=== PATIENT | female | born 1950 | race Caucasian/White ===

== ENCOUNTER 2019-02-06 23:20 | Inpatient (IN) | payer MEDICARE, MEDICAID ==
[~2019-02-06] VITALS: Ht 165.1 cm; Wt 104.3 kg
[~2019-02-06 23:20] MED LIST: LISI-604 PO; METF-415 PO; RANI150T7 PO; SIMV10TA6 PO; insulin 70/30 SUBCUT
[2019-02-07] MEDS ORDERED: ENOXAPARIN 100MG/ML SYR SUBCUT ONE (00:15)
[2019-02-07 00:37] LABS: BASOPHILS % 0.8 % (0.0-2.0); EOSINOPHILS % 0.9 % (0.0-5.0); HEMATOCRIT. 30.1 % (36.0-48.0); HEMOGLOBIN. 9.6 g/dL (12.0-16.0); LYMPHOCYTES % 11.4 % (20.0-50.0); MEAN CORPUSCULAR HEMOGLOBIN 27.4 pg (28.0-32.0); MEAN CORPUSCULAR VOLUME 85.9 fL (81.0-99.0); MEAN PLATELET VOLUME 7.2 fl (7.4-10.4); MONOCYTES % 6.9 % (2.0-8.0); PLATELET 212 x1000/uL (130-400); RED BLOOD CELL COUNT 3.51 mill/uL (4.2-5.4); RED CELL DISTRIBUTION WIDTH 24.5 % (11.6-14.6)
[2019-02-07 00:44] LABS: CHLORIDE 99 mEq/L (98-107); PROTHROMBIN TIME 10.7 sec (9.6-11.0)
[2019-02-07 01:15] LABS: PLATELET ESTIMATE NORMAL
[2019-02-07] MEDS ORDERED: LORAZEPAM 2MG/ML CPJ IV ONE (04:00)
[2019-02-07] MEDS ORDERED: OLANZAPINE 10 MG/VIAL IM ONE (05:30)
[2019-02-07 08:00] VITALS: BP 136/67
[2019-02-07] MEDS ORDERED: HYDROCODONE/ACETAMINOPHEN 5/325MG TABLET PO PRN (09:00)
[2019-02-07] MEDS ORDERED: ONDANSETRON HCL 4MG/2ML INJ IV PRN (09:00)
[2019-02-07] MEDS ORDERED: DOCUSATE SODIUM 100MG CAPSULE PO PRN (09:00)
[2019-02-07] MEDS ORDERED: GUAIFENESIN 200MG/10ML SUGAR FREE UDC PO PRN (09:00)
[2019-02-07] MEDS ORDERED: IPRATROPIUM/ALBUTEROL 0.5-3(2.5)MG/3ML NEB INH PRN (09:00)
[2019-02-07] MEDS ORDERED: MAGNESIUM/ALUMINUM HYDROXIDE/SIMETHICONE 30ML UDC PO PRN (09:00)
[2019-02-07] MEDS ORDERED: ACETAMINOPHEN 325MG TABLET PO PRN (09:00)
[2019-02-07 09:18] LABS: PHOSPHORUS 2.6 mg/dL (2.5-4.9)
[2019-02-07] MEDS: ENOXAPARIN 120MG/0.8ML SYR SUBCUT SCH ×2 (11:04→22:43)
[2019-02-07] MEDS ORDERED: DEXTROSE 50% WATER 50ML SYRINGE IV PRN (11:30)
[2019-02-07 12:00] VITALS: BP 138/79
[2019-02-07] MEDS: INSULIN LISPRO 100 UNITS/ML SUBCUT SCH ×3 (13:10→22:45)
[2019-02-07] MEDS: BLOOD SUGAR DIAGNOSTIC STRIP TEST SCH ×3 (13:23→22:43)
[2019-02-07 16:00] VITALS: BP 127/80
[2019-02-07 17:21] VITALS: BP 138/79
[2019-02-07] MEDS ORDERED: HEPA100D37 IV (18:57)
[2019-02-07] MEDS ORDERED: LEVO500T2 MT (18:57)
[2019-02-07] MEDS ORDERED: LOSA50TA20 MT (18:57)
[2019-02-07] MEDS ORDERED: ALBU4TAB6 MT (18:57)
[2019-02-07 20:00] VITALS: BP 127/62
[2019-02-08] VITALS (15 sets, daily range): BP systolic 72–154; BP diastolic 50–80
[2019-02-08 00:13] LABS: CREATINE KINASE MB FRACTION 1.9 ng/mL (0.5-3.6)
[2019-02-08 06:30] LABS: CHLORIDE 100 mEq/L (98-107)
[2019-02-08 06:37] LABS: EOSINOPHILS % 0.6 % (0.0-5.0); HEMATOCRIT. 30.7 % (36.0-48.0); HEMOGLOBIN. 9.6 g/dL (12.0-16.0); LYMPHOCYTES % 18.8 % (20.0-50.0); MEAN CORPUSCULAR HEMOGLOBIN 26.9 pg (28.0-32.0); MEAN CORPUSCULAR VOLUME 86.1 fL (81.0-99.0); MEAN PLATELET VOLUME 7.7 fl (7.4-10.4); MONOCYTES % 7.1 % (2.0-8.0); NEUTROPHILS % 72.5 % (40.0-76.0); PLATELET 292 x1000/uL (130-400); RED BLOOD CELL COUNT 3.56 mill/uL (4.2-5.4); RED CELL DISTRIBUTION WIDTH 24.7 % (11.6-14.6)
[2019-02-08 06:39] LABS: LDL CHOLESTEROL 64 mg/dL (5-100)
[2019-02-08 06:40] LABS: HDL CHOLESTEROL 63 mg/dL (40-59)
[2019-02-08] MEDS: BLOOD SUGAR DIAGNOSTIC STRIP TEST SCH ×2 (07:21→12:40)
[2019-02-08] MEDS: INSULIN LISPRO 100 UNITS/ML SUBCUT SCH ×2 (07:22→13:10)
[2019-02-08] MEDS: ENOXAPARIN 120MG/0.8ML SYR SUBCUT SCH (11:15)
[2019-02-08] MEDS: LOSARTAN POTASSIUM 50 MG TABLET PO SCH (12:00)
[2019-02-08] MEDS: LISINOPRIL 20MG TABLET PO SCH (12:00)
[2019-02-08 17:13] LABS: BG BASE EXCESS -0.2 mmol/L (-2.0-2.0); BG CARBOXYHEMOGLOBIN 0.4 % (0.5-1.5); BG DEOXYHEMOGLOBIN 0.6 % (0.0-5.0); BG FRACTION INSPIRED OXYGEN 100; BG HCO3 ACT 28.5 mmol/L (22.0-26.0); BG METHEMOGLOBIN 0.2 % (0.0-1.5); BG OXYGEN SATURATION 99.4 % (92.0-98.5); BG OXYHEMOGLOBIN 98.8 % (94.0-97.0); BG PH 7.228 (7.350-7.450); BG PO2 219.8 mmHg (75.0-100.0); BG SAMPLE SITE LEFT RADIAL; BG TOTAL HEMOGLOBIN 10.8 g/dL (12.0-18.0); BG VENT MODE MASK - NRB
[2019-02-08] MEDS ORDERED: SUCCINYLCHOLINE CHLORIDE 200MG/10ML IV ONE (17:15)
[2019-02-08] MEDS ORDERED: ETOMIDATE 2MG/ML 10ML VIAL IV ONE (17:15)
[2019-02-08] MEDS ORDERED: SODIUM CHLORIDE 0.9% 10ML VIAL ONE (17:15)
[2019-02-08] MEDS ORDERED: IPRATROPIUM/ALBUTEROL 0.5-3(2.5)MG/3ML NEB HHN PRN (18:00)
[2019-02-08 18:49] LABS: BG BASE EXCESS 0.6 mmol/L (-2.0-2.0); BG DEOXYHEMOGLOBIN 3.6 % (0.0-5.0); BG FRACTION INSPIRED OXYGEN 60; BG HCO3 ACT 26.7 mmol/L (22.0-26.0); BG METHEMOGLOBIN 0.1 % (0.0-1.5); BG OXYGEN SATURATION 96.4 % (92.0-98.5); BG OXYHEMOGLOBIN 95.3 % (94.0-97.0); BG PCO2 49.5 mmHg (35.0-45.0); BG PH 7.349 (7.350-7.450); BG PO2 90.9 mmHg (75.0-100.0); BG SAMPLE SITE RIGHT RADIAL; BG TIDAL VOLUME(mL) 500 mL; BG TOTAL HEMOGLOBIN 10.5 g/dL (12.0-18.0); BG VENT MODE VENT - A/C; BG VENT RATE 18 set
[2019-02-08] MEDS: PROPOFOL 10MG/ML 100ML 100 ML IV PRN (19:00)
[2019-02-08 19:01] LABS: EOSINOPHILS % 0.3 % (0.0-5.0); HEMATOCRIT. 30.4 % (36.0-48.0); HEMOGLOBIN. 9.4 g/dL (12.0-16.0); LYMPHOCYTES % 7.5 % (20.0-50.0); MEAN CORPUSCULAR VOLUME 87.5 fL (81.0-99.0); MEAN PLATELET VOLUME 7.5 fl (7.4-10.4); MONOCYTES % 3.4 % (2.0-8.0); NEUTROPHILS % 87.8 % (40.0-76.0); PLATELET 298 x1000/uL (130-400); RED BLOOD CELL COUNT 3.48 mill/uL (4.2-5.4); RED CELL DISTRIBUTION WIDTH 24.3 % (11.6-14.6)
[2019-02-08] MEDS: BUDESONIDE 0.5MG/2ML NEB HHN SCH (20:16)
[2019-02-08] MEDS: IPRATROPIUM/ALBUTEROL 0.5-3(2.5)MG/3ML NEB HHN SCH ×2 (20:16→23:58)
[2019-02-08] MEDS: PIPERACILLIN/TAZ 2.25G PREMIX 50 ML IV SCH (20:52)
[2019-02-08] MEDS: ATORVASTATIN CALCIUM 10MG TABLET PO SCH (20:52)
[2019-02-08] MEDS: FAMOTIDINE 20MG/2ML VIAL IV SCH (20:52)
[2019-02-08] MEDS ORDERED: ENOXAPARIN 120MG/0.8ML SYR SUBCUT SCH (21:00)
[2019-02-08] MEDS ORDERED: VANCOMYCIN 1500MG in DEXTROSE 5% WATER 250ML IV NR (21:00)
[2019-02-08 22:55] LABS: CLARITY URINE TURBID (CLEAR); KETONES URINE 1+ (NEGATIVE); LEUKOCYTE ESTERASE URINE 2+ (NEGATIVE); NITRITE URINE NEGATIVE (NEGATIVE); OCCULT BLOOD URINE NEGATIVE (NEGATIVE); PROTEIN URINE 2+ (NEGATIVE); SPECIFIC GRAVITY URINE 1.026 (1.005-1.030); UROBILINOGEN URINE 0.2 E.U./dL (0.2-1.0)
[2019-02-08 22:57] LABS: COLOR URINE DARK YELLOW (YELLOW)
[2019-02-08 23:03] LABS: *AMPHETAMINES SCREEN URINE NEGATIVE (NEGATIVE); *BARBITURATES SCREEN URINE NEGATIVE (NEGATIVE)
[2019-02-08 23:04] LABS: *BENZODIAZEPINES SCREEN URINE NEGATIVE (NEGATIVE); *COCAINE SCREEN URINE NEGATIVE (NEGATIVE); CANNABINOID URINE SCREEN NEGATIVE (NEGATIVE); METHADONE URINE SCREEN NEGATIVE (NEGATIVE); OPIATES URINE SCREEN NEGATIVE (NEGATIVE); PHENCYCLIDINE URINE SCREEN NEGATIVE (NEGATIVE)
[2019-02-09] VITALS (38 sets, daily range): BP systolic 87–161; BP diastolic 44–91
[2019-02-09] MEDS: BLOOD SUGAR DIAGNOSTIC STRIP TEST SCH ×5 (00:12→23:49)
[2019-02-09] MEDS: PIPERACILLIN/TAZ 2.25G PREMIX 50 ML IV SCH ×4 (02:24→19:41)
[2019-02-09] MEDS: PROPOFOL 10MG/ML 100ML 100 ML IV PRN ×2 (03:38→11:15)
[2019-02-09] MEDS: IPRATROPIUM/ALBUTEROL 0.5-3(2.5)MG/3ML NEB HHN SCH ×6 (04:07→23:56)
[2019-02-09 05:32] LABS: HEMATOCRIT. 30.4 % (36.0-48.0); HEMOGLOBIN. 9.6 g/dL (12.0-16.0); MEAN CORPUSCULAR HEMOGLOBIN 27.5 pg (28.0-32.0); MEAN CORPUSCULAR VOLUME 87.6 fL (81.0-99.0); MEAN PLATELET VOLUME 7.7 fl (7.4-10.4); PLATELET 277 x1000/uL (130-400); RED BLOOD CELL COUNT 3.48 mill/uL (4.2-5.4); RED CELL DISTRIBUTION WIDTH 24.4 % (11.6-14.6)
[2019-02-09] MEDS: INSULIN LISPRO 100 UNITS/ML SUBCUT SCH ×5 (05:53→23:49)
[2019-02-09 06:43] LABS: HEPATITIS B SURFACE ANTIGEN NEGATIVE
[2019-02-09] MEDS ORDERED: [UNRECOGNIZED DRUG - REMARK] XX SCH (07:15)
[2019-02-09] MEDS: FAMOTIDINE 20MG/2ML VIAL IV SCH (08:06)
[2019-02-09] MEDS: LOSARTAN POTASSIUM 50 MG TABLET PO SCH (08:06)
[2019-02-09] MEDS: LISINOPRIL 20MG TABLET PO SCH (08:06)
[2019-02-09] MEDS: BUDESONIDE 0.5MG/2ML NEB HHN SCH ×2 (08:28→20:13)
[2019-02-09 09:22] LABS: PLATELET ESTIMATE NORMAL
[2019-02-09] MEDS ORDERED: HEPARIN BOLUS PRN aPTT <36 IV (09:30)
[2019-02-09] MEDS ORDERED: HEPARIN BOLUS PRN aPTT 37-44 IV (09:30)
[2019-02-09] MEDS ORDERED: HEPARIN SODIUM 1,000 UNIT/1ML VIAL IV ONE (09:45)
[2019-02-09] MEDS: HEPARIN 25,000 UNITS PREMIX 500 ML IV SCH (11:32)
[2019-02-09 12:24] LABS: BG BASE EXCESS 1.4 mmol/L (-2.0-2.0); BG CARBOXYHEMOGLOBIN 0.5 % (0.5-1.5); BG FRACTION INSPIRED OXYGEN 50; BG METHEMOGLOBIN 0.1 % (0.0-1.5); BG OXYGEN SATURATION 90.9 % (92.0-98.5); BG OXYHEMOGLOBIN 90.4 % (94.0-97.0); BG PCO2 41.2 mmHg (35.0-45.0); BG PH 7.418 (7.350-7.450); BG SAMPLE SITE RIGHT RADIAL; BG TIDAL VOLUME(mL) 500 mL; BG TOTAL HEMOGLOBIN 10.7 g/dL (12.0-18.0); BG VENT MODE VENT - A/C; BG VENT RATE 18 set
[2019-02-09] MEDS: FENTANYL CITRATE/PF 500 MCG in SODIUM CHLORIDE 0.9% 40 ML IV PRN ×2 (13:13→20:29)
[2019-02-09] MEDS ORDERED: WARFARIN SODIUM 5MG TABLET PO NR (20:00)
[2019-02-09] MEDS: MIDAZOLAM HCL 100 MG in DEXT 5% WATER 80 ML IV PRN (20:31)
[2019-02-09] MEDS: ATORVASTATIN CALCIUM 10MG TABLET PO SCH (20:46)
[2019-02-09] MEDS ORDERED: VANCOMYCIN 1 G PREMIX 200 ML IV SCH (21:00)
[2019-02-10] VITALS (72 sets, daily range): BP systolic 81–137; BP diastolic 40–80
[2019-02-10] MEDS: PIPERACILLIN/TAZ 2.25G PREMIX 50 ML IV SCH ×4 (02:51→22:56)
[2019-02-10] MEDS: FENTANYL CITRATE/PF 500 MCG in SODIUM CHLORIDE 0.9% 40 ML IV PRN ×2 (02:58→17:14)
[2019-02-10] MEDS ORDERED: VANCOMYCIN 1250MG in DEXTROSE 5% WATER 250ML IV SCH (04:00)
[2019-02-10] MEDS: IPRATROPIUM/ALBUTEROL 0.5-3(2.5)MG/3ML NEB HHN SCH ×5 (04:09→22:01)
[2019-02-10 04:44] LABS: BASOPHILS % 0.8 % (0.0-2.0); EOSINOPHILS % 0.5 % (0.0-5.0); HEMATOCRIT. 26.3 % (36.0-48.0); HEMOGLOBIN. 8.3 g/dL (12.0-16.0); LYMPHOCYTES % 10.8 % (20.0-50.0); MEAN CORPUSCULAR HEMOGLOBIN 27.5 pg (28.0-32.0); MEAN CORPUSCULAR VOLUME 87.1 fL (81.0-99.0); MEAN PLATELET VOLUME 7.7 fl (7.4-10.4); MONOCYTES % 5.4 % (2.0-8.0); NEUTROPHILS % 82.5 % (40.0-76.0); PLATELET 242 x1000/uL (130-400); RED BLOOD CELL COUNT 3.02 mill/uL (4.2-5.4); RED CELL DISTRIBUTION WIDTH 24.7 % (11.6-14.6)
[2019-02-10 05:12] LABS: INR 1.2; PROTHROMBIN TIME 12.8 sec (9.6-11.0)
[2019-02-10] MEDS: BLOOD SUGAR DIAGNOSTIC STRIP TEST SCH ×3 (05:14→17:25)
[2019-02-10] MEDS: INSULIN LISPRO 100 UNITS/ML SUBCUT SCH ×3 (05:15→17:27)
[2019-02-10] MEDS: HEPARIN 25,000 UNITS PREMIX 500 ML IV SCH (06:19)
[2019-02-10] MEDS ORDERED: POTASSIUM CHLORIDE 20MEQ/PACKET PO NR (07:45)
[2019-02-10] MEDS: BUDESONIDE 0.5MG/2ML NEB HHN SCH ×2 (08:10→22:01)
[2019-02-10 08:15] LABS: *CREATININE RANDOM URINE 324.5 mg/dL (Not Estab.); MICROALBUMIN RANDOM URINE 1384.8 ug/mL (Not Estab.)
[2019-02-10] MEDS: LOSARTAN POTASSIUM 50 MG TABLET PO SCH (08:20)
[2019-02-10] MEDS: FAMOTIDINE 20MG/2ML VIAL IV SCH (08:20)
[2019-02-10] MEDS: LISINOPRIL 20MG TABLET PO SCH (08:28)
[2019-02-10] MEDS: ENOXAPARIN 120MG/0.8ML SYR SUBCUT SCH (17:11)
[2019-02-10] MEDS: MIDAZOLAM HCL 100 MG in DEXT 5% WATER 80 ML IV PRN (17:15)
[2019-02-10] MEDS ORDERED: WARFARIN SODIUM 5MG TABLET PO NR (18:00)
[2019-02-10] MEDS: ATORVASTATIN CALCIUM 10MG TABLET PO SCH (20:03)
[2019-02-11] VITALS (77 sets, daily range): BP systolic 74–129; BP diastolic 29–79
[2019-02-11] MEDS: IPRATROPIUM/ALBUTEROL 0.5-3(2.5)MG/3ML NEB HHN SCH ×6 (00:58→19:57)
[2019-02-11 05:05] LABS: BASOPHILS % 0.9 % (0.0-2.0); EOSINOPHILS % 1.8 % (0.0-5.0); HEMATOCRIT. 26.2 % (36.0-48.0); HEMOGLOBIN. 8.4 g/dL (12.0-16.0); MEAN CORPUSCULAR HEMOGLOBIN 27.9 pg (28.0-32.0); MEAN CORPUSCULAR VOLUME 86.8 fL (81.0-99.0); MEAN PLATELET VOLUME 7.8 fl (7.4-10.4); MONOCYTES % 5.6 % (2.0-8.0); NEUTROPHILS % 78.7 % (40.0-76.0); PLATELET 249 x1000/uL (130-400); RED BLOOD CELL COUNT 3.02 mill/uL (4.2-5.4); RED CELL DISTRIBUTION WIDTH 24.5 % (11.6-14.6)
[2019-02-11 05:10] LABS: INR 1.4; PROTHROMBIN TIME 13.7 sec (9.6-11.0)
[2019-02-11] MEDS: INSULIN LISPRO 100 UNITS/ML SUBCUT SCH ×5 (06:00→23:16)
[2019-02-11] MEDS: BLOOD SUGAR DIAGNOSTIC STRIP TEST SCH ×5 (06:00→23:16)
[2019-02-11] MEDS: PIPERACILLIN/TAZ 2.25G PREMIX 50 ML IV SCH ×2 (06:09→15:14)
[2019-02-11] MEDS: FENTANYL CITRATE/PF 500 MCG in SODIUM CHLORIDE 0.9% 40 ML IV PRN ×2 (06:10→18:43)
[2019-02-11] MEDS ORDERED: HEPARIN SODIUM 1,000 UNIT/1ML VIAL IV NR (08:45)
[2019-02-11] MEDS: BUDESONIDE 0.5MG/2ML NEB HHN SCH ×2 (08:49→19:57)
[2019-02-11] MEDS: LISINOPRIL 20MG TABLET PO SCH (09:00)
[2019-02-11] MEDS: LOSARTAN POTASSIUM 50 MG TABLET PO SCH (09:00)
[2019-02-11] MEDS ORDERED: DOCUSATE SODIUM 250MG CAPSULE PO SCH (09:45)
[2019-02-11] MEDS ORDERED: LACTULOSE 20G/30ML UDC PO NR (09:45)
[2019-02-11] MEDS ORDERED: VANCOMYCIN 1 G PREMIX 200 ML IV NR (10:30)
[2019-02-11] MEDS: FAMOTIDINE 20MG/2ML VIAL IV SCH (11:01)
[2019-02-11 13:32] LABS: BG BASE EXCESS 0.4 mmol/L (-2.0-2.0); BG CARBOXYHEMOGLOBIN 0.4 % (0.5-1.5); BG DEOXYHEMOGLOBIN 2.7 % (0.0-5.0); BG FRACTION INSPIRED OXYGEN 50; BG HCO3 ACT 25.9 mmol/L (22.0-26.0); BG METHEMOGLOBIN 0.2 % (0.0-1.5); BG OXYGEN SATURATION 97.3 % (92.0-98.5); BG OXYHEMOGLOBIN 96.7 % (94.0-97.0); BG PCO2 45.7 mmHg (35.0-45.0); BG PH 7.371 (7.350-7.450); BG PO2 105.4 mmHg (75.0-100.0); BG SAMPLE SITE RIGHT BRACHIAL; BG TIDAL VOLUME(mL) 500 mL; BG VENT MODE VENT - A/C; BG VENT RATE 14 set
[2019-02-11] MEDS: DOCUSATE SODIUM SUGAR FREE 100MG/10ML UDC NG SCH (16:00)
[2019-02-11] MEDS: ENOXAPARIN 120MG/0.8ML SYR SUBCUT SCH (16:18)
[2019-02-11] MEDS ORDERED: AZITHROMYCIN 500 MG in DEXT 5% WATER 250 ML IV SCH (18:00)
[2019-02-11] MEDS: OSELTAMIVIR 75MG CAPSULE NG SCH (18:41)
[2019-02-11] MEDS: ATORVASTATIN CALCIUM 10MG TABLET PO SCH (20:42)
[2019-02-11] MEDS: NOREPINEPHRINE 4 MG in DEXT 5% WATER 246 ML IV PRN (20:42)
[2019-02-11] MEDS ORDERED: LACTULOSE 20G/30ML UDC PO PRN (21:00)
[2019-02-12] VITALS (95 sets, daily range): BP systolic 87–136; BP diastolic 31–80
[2019-02-12] MEDS: IPRATROPIUM/ALBUTEROL 0.5-3(2.5)MG/3ML NEB HHN SCH ×6 (00:21→15:33)
[2019-02-12 05:07] LABS: BASOPHILS % 0.8 % (0.0-2.0); EOSINOPHILS % 2.5 % (0.0-5.0); HEMATOCRIT. 29.5 % (36.0-48.0); HEMOGLOBIN. 9.5 g/dL (12.0-16.0); LYMPHOCYTES % 13.4 % (20.0-50.0); MEAN CORPUSCULAR HEMOGLOBIN 27.8 pg (28.0-32.0); MEAN CORPUSCULAR VOLUME 86.7 fL (81.0-99.0); MEAN PLATELET VOLUME 7.9 fl (7.4-10.4); MONOCYTES % 4.6 % (2.0-8.0); NEUTROPHILS % 78.7 % (40.0-76.0); PLATELET 306 x1000/uL (130-400); RED BLOOD CELL COUNT 3.41 mill/uL (4.2-5.4); RED CELL DISTRIBUTION WIDTH 23.9 % (11.6-14.6)
[2019-02-12 05:18] LABS: INR 1.4; PROTHROMBIN TIME 13.8 sec (9.6-11.0)
[2019-02-12] MEDS: INSULIN LISPRO 100 UNITS/ML SUBCUT SCH ×4 (05:45→23:27)
[2019-02-12] MEDS: BLOOD SUGAR DIAGNOSTIC STRIP TEST SCH ×4 (05:45→23:27)
[2019-02-12] MEDS: OSELTAMIVIR 75MG CAPSULE NG SCH (05:45)
[2019-02-12] MEDS: DOCUSATE SODIUM SUGAR FREE 100MG/10ML UDC NG SCH (08:41)
[2019-02-12] MEDS: LOSARTAN POTASSIUM 50 MG TABLET PO SCH (08:41)
[2019-02-12] MEDS: LISINOPRIL 20MG TABLET PO SCH (08:41)
[2019-02-12] MEDS: FAMOTIDINE 20MG/2ML VIAL IV SCH (09:06)
[2019-02-12] MEDS ORDERED: SODIUM CHLORIDE 0.9% 500 ML IV ONE ×2 (09:30→10:45)
[2019-02-12] MEDS: METHYLPREDNISOLONE SOD SUCC 125 MG/2 ML VIAL IV SCH ×3 (11:24→21:01)
[2019-02-12] MEDS: LEVOFLOXACIN 750MG PREMIX 150 ML IV SCH (11:27)
[2019-02-12] MEDS: FENTANYL CITRATE/PF 500 MCG in SODIUM CHLORIDE 0.9% 40 ML IV PRN ×2 (11:44→21:02)
[2019-02-12] MEDS: NOREPINEPHRINE 4 MG in DEXT 5% WATER 246 ML IV PRN (16:47)
[2019-02-12] MEDS: ENOXAPARIN 120MG/0.8ML SYR SUBCUT SCH (16:47)
[2019-02-12] MEDS: MIDAZOLAM HCL 100 MG in DEXT 5% WATER 80 ML IV PRN (17:30)
[2019-02-12] MEDS: ATORVASTATIN CALCIUM 10MG TABLET PO SCH (21:01)
[2019-02-13] VITALS (95 sets, daily range): BP systolic 92–157; BP diastolic 47–82
[2019-02-13] MEDS: IPRATROPIUM/ALBUTEROL 0.5-3(2.5)MG/3ML NEB HHN SCH ×6 (00:55→20:29)
[2019-02-13] MEDS: METHYLPREDNISOLONE SOD SUCC 125 MG/2 ML VIAL IV SCH (05:26)
[2019-02-13] MEDS: BLOOD SUGAR DIAGNOSTIC STRIP TEST SCH ×3 (05:27→17:12)
[2019-02-13] MEDS: FENTANYL CITRATE/PF 500 MCG in SODIUM CHLORIDE 0.9% 40 ML IV PRN (05:27)
[2019-02-13] MEDS: INSULIN LISPRO 100 UNITS/ML SUBCUT SCH ×3 (05:27→17:15)
[2019-02-13 05:36] LABS: INR 1.3; PROTHROMBIN TIME 13.1 sec (9.6-11.0)
[2019-02-13 05:37] LABS: HEMATOCRIT. 29.6 % (36.0-48.0); HEMOGLOBIN. 9.3 g/dL (12.0-16.0); MEAN CORPUSCULAR HEMOGLOBIN 27.4 pg (28.0-32.0); MEAN PLATELET VOLUME 8.1 fl (7.4-10.4); PLATELET 250 x1000/uL (130-400); RED CELL DISTRIBUTION WIDTH 23.9 % (11.6-14.6)
[2019-02-13] MEDS: FAMOTIDINE 20MG/2ML VIAL IV SCH (09:07)
[2019-02-13] MEDS: LOSARTAN POTASSIUM 50 MG TABLET PO SCH (09:07)
[2019-02-13] MEDS: DOCUSATE SODIUM SUGAR FREE 100MG/10ML UDC NG SCH (09:08)
[2019-02-13] MEDS: LISINOPRIL 20MG TABLET PO SCH (09:08)
[2019-02-13 11:10] LABS: PLATELET ESTIMATE NORMAL
[2019-02-13] MEDS: METHYLPREDNISOLONE SOD SUCC 40 MG/ML VIAL IV SCH ×2 (12:09→20:08)
[2019-02-13 13:20] LABS: BG BASE EXCESS -1.8 mmol/L (-2.0-2.0); BG CARBOXYHEMOGLOBIN 0.3 % (0.5-1.5); BG DEOXYHEMOGLOBIN 11.1 % (0.0-5.0); BG FRACTION INSPIRED OXYGEN 40; BG HCO3 ACT 24.8 mmol/L (22.0-26.0); BG METHEMOGLOBIN 0.1 % (0.0-1.5); BG OXYGEN SATURATION 88.9 % (92.0-98.5); BG OXYHEMOGLOBIN 88.5 % (94.0-97.0); BG PCO2 50.9 mmHg (35.0-45.0); BG PH 7.305 (7.350-7.450); BG PO2 60.3 mmHg (75.0-100.0); BG PRESSURE SUPPORT 8; BG SAMPLE SITE LEFT RADIAL; BG TOTAL HEMOGLOBIN 10.1 g/dL (12.0-18.0); BG VENT MODE VENT - CPAP
[2019-02-13] MEDS: ENOXAPARIN 120MG/0.8ML SYR SUBCUT SCH (17:15)
[2019-02-13] MEDS: ATORVASTATIN CALCIUM 10MG TABLET PO SCH (20:08)
[2019-02-13] MEDS: DIPHENHYDRAMINE 50MG/ML VIAL IV PRN (21:09)
[2019-02-14] VITALS (93 sets, daily range): BP systolic 90–168; BP diastolic 31–114
[2019-02-14] MEDS: BLOOD SUGAR DIAGNOSTIC STRIP TEST SCH ×5 (00:11→23:55)
[2019-02-14] MEDS: INSULIN LISPRO 100 UNITS/ML SUBCUT SCH ×5 (00:13→23:57)
[2019-02-14] MEDS: IPRATROPIUM/ALBUTEROL 0.5-3(2.5)MG/3ML NEB HHN SCH ×6 (00:30→20:20)
[2019-02-14] MEDS: METHYLPREDNISOLONE SOD SUCC 40 MG/ML VIAL IV SCH ×2 (03:33→17:23)
[2019-02-14 05:45] LABS: HEMATOCRIT. 29.3 % (36.0-48.0); HEMOGLOBIN. 9.1 g/dL (12.0-16.0); INR 1.2; MEAN CORPUSCULAR HEMOGLOBIN 27.4 pg (28.0-32.0); MEAN CORPUSCULAR VOLUME 87.9 fL (81.0-99.0); PLATELET 295 x1000/uL (130-400); PROTHROMBIN TIME 11.9 sec (9.6-11.0); RED BLOOD CELL COUNT 3.33 mill/uL (4.2-5.4); RED CELL DISTRIBUTION WIDTH 23.1 % (11.6-14.6)
[2019-02-14 07:07] LABS: PLATELET ESTIMATE NORMAL
[2019-02-14] MEDS: FAMOTIDINE 20MG/2ML VIAL IV SCH (08:43)
[2019-02-14] MEDS: LISINOPRIL 20MG TABLET PO SCH ×2 (08:44→09:00)
[2019-02-14] MEDS: LOSARTAN POTASSIUM 50 MG TABLET PO SCH (08:44)
[2019-02-14] MEDS: DOCUSATE SODIUM SUGAR FREE 100MG/10ML UDC NG SCH (08:44)
[2019-02-14] MEDS ORDERED: SODIUM CHLORIDE 3% FOR INH 15ML VIAL NEB INH NR (11:30)
[2019-02-14] MEDS ORDERED: HEPARIN SODIUM 1,000 UNIT/1ML VIAL IV SCH (12:30)
[2019-02-14] MEDS: LEVOFLOXACIN 750MG PREMIX 150 ML IV SCH (14:10)
[2019-02-14] MEDS: ACETYLCYSTEINE 100MG/ML 10% VIAL 4ML INH SCH (15:41)
[2019-02-14] MEDS: ENOXAPARIN 120MG/0.8ML SYR SUBCUT SCH (16:43)
[2019-02-14] MEDS: CLONIDINE 0.1MG TABLET PO PRN (17:55)
[2019-02-14] MEDS: ATORVASTATIN CALCIUM 10MG TABLET PO SCH (21:03)
[2019-02-14] MEDS: DIPHENHYDRAMINE 50MG/ML VIAL IV PRN (21:18)
[2019-02-15] VITALS (64 sets, daily range): BP systolic 109–186; BP diastolic 50–115
[2019-02-15] MEDS: IPRATROPIUM/ALBUTEROL 0.5-3(2.5)MG/3ML NEB HHN SCH ×6 (00:04→20:37)
[2019-02-15] MEDS: ACETYLCYSTEINE 100MG/ML 10% VIAL 4ML INH SCH ×3 (00:05→15:33)
[2019-02-15] MEDS: DIPHENHYDRAMINE 50MG/ML VIAL IV PRN (04:10)
[2019-02-15 05:54] LABS: HEMATOCRIT. 29.1 % (36.0-48.0); HEMOGLOBIN. 9.2 g/dL (12.0-16.0); MEAN CORPUSCULAR HEMOGLOBIN 27.4 pg (28.0-32.0); MEAN CORPUSCULAR VOLUME 86.5 fL (81.0-99.0); PLATELET 323 x1000/uL (130-400); RED BLOOD CELL COUNT 3.37 mill/uL (4.2-5.4); RED CELL DISTRIBUTION WIDTH 22.9 % (11.6-14.6)
[2019-02-15] MEDS: BLOOD SUGAR DIAGNOSTIC STRIP TEST SCH ×3 (06:19→17:41)
[2019-02-15] MEDS: INSULIN LISPRO 100 UNITS/ML SUBCUT SCH ×3 (06:22→19:16)
[2019-02-15] MEDS: METHYLPREDNISOLONE SOD SUCC 40 MG/ML VIAL IV SCH (06:22)
[2019-02-15] MEDS: LISINOPRIL 20MG TABLET PO SCH (09:00)
[2019-02-15] MEDS: LOSARTAN POTASSIUM 50 MG TABLET PO SCH (09:00)
[2019-02-15] MEDS: DOCUSATE SODIUM SUGAR FREE 100MG/10ML UDC NG SCH (09:00)
[2019-02-15] MEDS: FAMOTIDINE 20MG/2ML VIAL IV SCH (09:00)
[2019-02-15 10:16] LABS: PLATELET ESTIMATE NORMAL
[2019-02-15] MEDS: ENOXAPARIN 120MG/0.8ML SYR SUBCUT SCH ×2 (11:45→21:16)
[2019-02-15] MEDS: CLONIDINE 0.1MG TABLET PO PRN (11:45)
[2019-02-15] MEDS: ATORVASTATIN CALCIUM 10MG TABLET PO SCH (21:16)
[2019-02-16] VITALS (12 sets, daily range): BP systolic 95–171; BP diastolic 39–112
[2019-02-16] MEDS: INSULIN LISPRO 100 UNITS/ML SUBCUT SCH ×5 (00:22→21:01)
[2019-02-16] MEDS: BLOOD SUGAR DIAGNOSTIC STRIP TEST SCH ×5 (00:23→21:00)
[2019-02-16] MEDS: ACETYLCYSTEINE 100MG/ML 10% VIAL 4ML INH SCH ×2 (02:26→09:50)
[2019-02-16] MEDS: IPRATROPIUM/ALBUTEROL 0.5-3(2.5)MG/3ML NEB HHN SCH ×4 (02:27→21:24)
[2019-02-16] MEDS ORDERED: METHYLPREDNISOLONE SOD SUCC 40 MG/ML VIAL IV SCH (09:00)
[2019-02-16] MEDS: LISINOPRIL 20MG TABLET PO SCH (09:04)
[2019-02-16] MEDS: LOSARTAN POTASSIUM 50 MG TABLET PO SCH (09:04)
[2019-02-16] MEDS: DOCUSATE SODIUM SUGAR FREE 100MG/10ML UDC NG SCH (09:05)
[2019-02-16] MEDS: FAMOTIDINE 20MG/2ML VIAL IV SCH (09:05)
[2019-02-16] MEDS: ENOXAPARIN 120MG/0.8ML SYR SUBCUT SCH ×2 (09:06→20:26)
[2019-02-16] MEDS: LEVOFLOXACIN 750MG PREMIX 150 ML IV SCH (11:20)
[2019-02-16] MEDS: ATORVASTATIN CALCIUM 10MG TABLET PO SCH (20:23)
[2019-02-17] VITALS (13 sets, daily range): BP systolic 125–168; BP diastolic 68–89
[2019-02-17] MEDS: IPRATROPIUM/ALBUTEROL 0.5-3(2.5)MG/3ML NEB HHN SCH ×4 (02:36→22:02)
[2019-02-17 06:09] LABS: HEMATOCRIT. 28.2 % (36.0-48.0); HEMOGLOBIN. 8.8 g/dL (12.0-16.0); MEAN CORPUSCULAR HEMOGLOBIN 27.1 pg (28.0-32.0); MEAN CORPUSCULAR VOLUME 86.9 fL (81.0-99.0); MEAN PLATELET VOLUME 7.5 fl (7.4-10.4); PLATELET 317 x1000/uL (130-400); RED BLOOD CELL COUNT 3.24 mill/uL (4.2-5.4); RED CELL DISTRIBUTION WIDTH 22.8 % (11.6-14.6)
[2019-02-17] MEDS: INSULIN LISPRO 100 UNITS/ML SUBCUT SCH ×4 (07:30→23:02)
[2019-02-17] MEDS: BLOOD SUGAR DIAGNOSTIC STRIP TEST SCH ×4 (07:52→21:00)
[2019-02-17] MEDS: DOCUSATE SODIUM SUGAR FREE 100MG/10ML UDC NG SCH (08:51)
[2019-02-17] MEDS: FAMOTIDINE 20MG/2ML VIAL IV SCH (08:51)
[2019-02-17] MEDS: LOSARTAN POTASSIUM 50 MG TABLET PO SCH (08:52)
[2019-02-17] MEDS: LISINOPRIL 20MG TABLET PO SCH (08:52)
[2019-02-17 09:39] LABS: BG BASE EXCESS 1.7 mmol/L (-2.0-2.0); BG CARBOXYHEMOGLOBIN 0.4 % (0.5-1.5); BG DEOXYHEMOGLOBIN 4.8 % (0.0-5.0); BG FRACTION INSPIRED OXYGEN 28; BG HCO3 ACT 27.1 mmol/L (22.0-26.0); BG METHEMOGLOBIN 0.1 % (0.0-1.5); BG OXYGEN SATURATION 95.2 % (92.0-98.5); BG OXYHEMOGLOBIN 94.7 % (94.0-97.0); BG PCO2 46.1 mmHg (35.0-45.0); BG PH 7.387 (7.350-7.450); BG PO2 77.6 mmHg (75.0-100.0); BG SAMPLE SITE RIGHT RADIAL; BG VENT MODE NASAL CANNULA
[2019-02-17] MEDS ORDERED: HEPARIN SODIUM 1,000 UNIT/1ML VIAL IV SCH (10:30)
[2019-02-17] MEDS: ENOXAPARIN 120MG/0.8ML SYR SUBCUT SCH (10:35)
[2019-02-17 13:09] LABS: PLATELET ESTIMATE NORMAL
[2019-02-17] MEDS: AMLODIPINE 2.5MG TABLET PO SCH ×2 (13:28→22:48)
[2019-02-17] MEDS: ATORVASTATIN CALCIUM 10MG TABLET PO SCH (22:49)
[2019-02-18] VITALS (10 sets, daily range): BP systolic 99–160; BP diastolic 53–78
[2019-02-18] MEDS: IPRATROPIUM/ALBUTEROL 0.5-3(2.5)MG/3ML NEB HHN SCH ×4 (01:31→19:43)
[2019-02-18] MEDS: CLONIDINE 0.1MG TABLET PO PRN (03:42)
[2019-02-18] MEDS: DIPHENHYDRAMINE 50MG/ML VIAL IV PRN (03:42)
[2019-02-18] MEDS: BLOOD SUGAR DIAGNOSTIC STRIP TEST SCH ×4 (07:04→21:00)
[2019-02-18] MEDS: INSULIN LISPRO 100 UNITS/ML SUBCUT SCH ×4 (07:04→21:00)
[2019-02-18] MEDS: AMLODIPINE 2.5MG TABLET PO SCH ×2 (08:23→21:00)
[2019-02-18] MEDS: LOSARTAN POTASSIUM 50 MG TABLET PO SCH (08:23)
[2019-02-18] MEDS: FAMOTIDINE 20MG/2ML VIAL IV SCH (08:23)
[2019-02-18] MEDS: LISINOPRIL 20MG TABLET PO SCH (08:23)
[2019-02-18] MEDS: DOCUSATE SODIUM SUGAR FREE 100MG/10ML UDC NG SCH (08:23)
[2019-02-18] MEDS: ENOXAPARIN 120MG/0.8ML SYR SUBCUT SCH (10:28)
[2019-02-18] MEDS: LEVOFLOXACIN 750MG PREMIX 150 ML IV SCH (11:04)
[2019-02-18] MEDS: ATORVASTATIN CALCIUM 10MG TABLET PO SCH (21:49)
[2019-02-19] VITALS: BP 140/76
[2019-02-19] MEDS: IPRATROPIUM/ALBUTEROL 0.5-3(2.5)MG/3ML NEB HHN SCH (02:36)
[2019-02-19] MEDS: CLONIDINE 0.1MG TABLET PO PRN (04:35)
[2019-02-19] MEDS: BLOOD SUGAR DIAGNOSTIC STRIP TEST SCH (07:30)
[2019-02-19 08:00] VITALS: BP 162/92
[2019-02-19] MEDS: INSULIN LISPRO 100 UNITS/ML SUBCUT SCH (09:41)
[2019-02-19] MEDS: AMLODIPINE 2.5MG TABLET PO SCH (09:43)
[2019-02-19] MEDS: LISINOPRIL 20MG TABLET PO SCH (09:43)
[2019-02-19] MEDS: FAMOTIDINE 20MG/2ML VIAL IV SCH (09:44)
[2019-02-19] MEDS: LOSARTAN POTASSIUM 50 MG TABLET PO SCH (09:44)
[2019-02-19] MEDS: DOCUSATE SODIUM SUGAR FREE 100MG/10ML UDC NG SCH (09:44)
[2019-02-19] MEDS: ENOXAPARIN 120MG/0.8ML SYR SUBCUT SCH (12:12)
[2019-02-19 12:34] VITALS: BP 164/82
[2019-02-20] MEDS ORDERED: LOSARTAN POTASSIUM 100 MG TABLET PO SCH (09:00)
== END 2019-02-19 13:00 | disposition home health service (06) | DRG 720 ==
LOC: ER 23:20 → 7WST 02-07 03:16 → EDBEDREQ 02-07 03:18 → EDBEDREQTM 02-07 03:18 → CANRESERV 02-07 07:11 → ENRESERV 02-07 07:11 → MICUSO 02-08 17:25 → 5EST 02-15 17:35
PROVIDERS: ADMIT Internal Medicine; ATTEND Internal Medicine
PROC: 5A1955Z Respiratory Ventilation, Greater than 96 Consecutive Hours (ICD-10-PCS; principal; 2019-02-08)
PROC: 0BH17EZ Insertion of Endotracheal Airway into Trachea, Via Natural or Artificial Opening (ICD-10-PCS; 2019-02-08)
PROC: 02HV33Z Insertion of Infusion Device into Superior Vena Cava, Percutaneous Approach (ICD-10-PCS; 2019-02-09)
PROC: B548ZZA Ultrasonography of Superior Vena Cava, Guidance (ICD-10-PCS; 2019-02-09)
PROC: 5A1D70Z Performance of Urinary Filtration, Intermittent, Less than 6 Hours Per Day (ICD-10-PCS; 2019-02-09)
PROC: 5A1D70Z Performance of Urinary Filtration, Intermittent, Less than 6 Hours Per Day (ICD-10-PCS; 2019-02-11)
PROC: 5A09357 Assistance with Respiratory Ventilation, Less than 24 Consecutive Hours, Continuous Positive Airway Pressure (ICD-10-PCS; 2019-02-13)
PROC: 5A09357 Assistance with Respiratory Ventilation, Less than 24 Consecutive Hours, Continuous Positive Airway Pressure (ICD-10-PCS; 2019-02-14)
PROC: 5A1D70Z Performance of Urinary Filtration, Intermittent, Less than 6 Hours Per Day (ICD-10-PCS; 2019-02-14)
PROC: 5A09357 Assistance with Respiratory Ventilation, Less than 24 Consecutive Hours, Continuous Positive Airway Pressure (ICD-10-PCS; 2019-02-16)
PROC: 5A1D70Z Performance of Urinary Filtration, Intermittent, Less than 6 Hours Per Day (ICD-10-PCS; 2019-02-17)
DX: A41.9 Sepsis, unspecified organism (principal); J96.21 Acute and chronic respiratory failure with hypoxia; E43 Unspecified severe protein-calorie malnutrition; J10.08 Influenza due to other identified influenza virus with other specified pneumonia; J14 Pneumonia due to Hemophilus influenzae; R65.21 Severe sepsis with septic shock; I13.2 Hypertensive heart and chronic kidney disease with heart failure and with stage 5 chronic kidney disease, or end stage renal disease; G93.40 Encephalopathy, unspecified; J45.901 Unspecified asthma with (acute) exacerbation; E87.2 Acidosis; I27.20 Pulmonary hypertension, unspecified; E66.2 Morbid (severe) obesity with alveolar hypoventilation; E11.22 Type 2 diabetes mellitus with diabetic chronic kidney disease; I82.432 Acute embolism and thrombosis of left popliteal vein; I50.30 Unspecified diastolic (congestive) heart failure; N18.6 End stage renal disease; E87.6 Hypokalemia; L89.619 Pressure ulcer of right heel, unspecified stage; E78.5 Hyperlipidemia, unspecified; N17.9 Acute kidney failure, unspecified; I83.93 Asymptomatic varicose veins of bilateral lower extremities; M19.90 Unspecified osteoarthritis, unspecified site; E78.00 Pure hypercholesterolemia, unspecified; L89.629 Pressure ulcer of left heel, unspecified stage; B18.2 Chronic viral hepatitis C; J96.22 Acute and chronic respiratory failure with hypercapnia; L85.3 Xerosis cutis; D64.9 Anemia, unspecified; Z99.2 Dependence on renal dialysis; Z98.891 History of uterine scar from previous surgery; Z83.3 Family history of diabetes mellitus; Z79.4 Long term (current) use of insulin; Z79.899 Other long term (current) drug therapy; Z79.84 Long term (current) use of oral hypoglycemic drugs; Z78.1 Physical restraint status; Z86.718 Personal history of other venous thrombosis and embolism; Z68.38 Body mass index [BMI] 38.0-38.9, adult
CPT/HCPCS: 36415; 36569; 36600; 71045; 76700; 76937; 78580; 80048; 80061; 80202; 80305; 82043; 82140; 82375; 82550; 82553; 82570; 82805; 82962; 83036; 83735; 83880; 84100; 84145; 84443; 84478; 84484; 86803; 87070; 87077; 87340; 92610; 93005; 93306; 93970; 94640; 96372; 96374; 97162; 97164; 97167; 97530; 99285; A6261; C1725; J0330; J0456; J1200; J1644; J1650; J1815; J1956; J2060; J2250; J2543; J2704; J2920; J2930; J3010; J3370; J3490; J7040; J7050; J7060; J7608; J7620; J7626; A4315

== ENCOUNTER 2019-10-04 16:00 | Inpatient (IN) | payer MEDICARE, MEDICAID ==
[~2019-10-04] VITALS: Ht 165.1 cm; Wt 86.9 kg
[~2019-10-04 16:00] MED LIST changes: +ALBU4TAB6 MT; +HEPA100D37 IV; +LEVO500T2 MT; +LOSA50TA41 MT
[2019-10-04] MEDS ORDERED: IPRATROPIUM/ALBUTEROL 0.5-3(2.5)MG/3ML NEB ONE (16:38)
[2019-10-04] MEDS ORDERED: IPRATROPIUM BROMIDE (0.02%) 0.5MG/2.5ML NEB HHN STA (16:45)
[2019-10-04] MEDS ORDERED: ALBUTEROL (0.083%) 2.5MG/3ML NEB HHN STA (16:45)
[2019-10-04 16:58] LABS: BASOPHILS % 0.7 % (0.0-2.0); HEMATOCRIT. 37.9 % (36.0-48.0); HEMOGLOBIN. 11.7 g/dL (12.0-16.0); LYMPHOCYTES % 10.6 % (20.0-50.0); MEAN CORPUSCULAR HEMOGLOBIN 29.2 pg (28.0-32.0); MEAN CORPUSCULAR VOLUME 94.3 fL (81.0-99.0); MEAN PLATELET VOLUME 8.5 fl (7.4-10.4); MONOCYTES % 7.8 % (2.0-8.0); NEUTROPHILS % 79.9 % (40.0-76.0); PLATELET 219 x1000/uL (130-400); RED BLOOD CELL COUNT 4.02 mill/uL (4.2-5.4); RED CELL DISTRIBUTION WIDTH 19.6 % (11.6-14.6)
[2019-10-04] MEDS ORDERED: VANCOMYCIN 1 G PREMIX 200 ML IV ONE (17:00)
[2019-10-04] MEDS ORDERED: PIPERACILLIN/TAZ 3.375G PREMIX 50 ML IV ONE (17:00)
[2019-10-04] MEDS ORDERED: AZITHROMYCIN 500 MG in DEXT 5% WATER 250 ML IV ONE (17:00)
[2019-10-04 17:03] LABS: CHLORIDE 101 mEq/L (98-107)
[2019-10-04] MEDS ORDERED: IPRATROPIUM/ALBUTEROL 0.5-3(2.5)MG/3ML NEB HHN PRN (18:15)
[2019-10-04] MEDS ORDERED: ONDANSETRON HCL 4MG/2ML INJ IV PRN (18:15)
[2019-10-04] MEDS ORDERED: PIPERACILLIN/TAZ 3.375G PREMIX 50 ML IV SCH (18:15)
[2019-10-04] MEDS ORDERED: ENOXAPARIN 40MG/0.4ML SYR SUBCUT SCH (18:15)
[2019-10-04] MEDS ORDERED: ACETAMINOPHEN 325MG TABLET PO PRN (18:15)
[2019-10-04] MEDS ORDERED: DIPHENHYDRAMINE 50MG/ML VIAL IV PRN (18:15)
[2019-10-04] MEDS ORDERED: LORAZEPAM 2MG/ML CPJ IV ONE (18:30)
[2019-10-04 19:30] LABS: PHOSPHORUS 3.3 mg/dL (2.5-4.9)
[2019-10-05] VITALS (76 sets, daily range): BP systolic 98–156; BP diastolic 48–108
[2019-10-05] MEDS ORDERED: PROPOFOL 10MG/ML 100ML 100 ML IV SCH (01:00)
[2019-10-05] MEDS: IPRATROPIUM/ALBUTEROL 0.5-3(2.5)MG/3ML NEB HHN SCH ×5 (04:44→20:36)
[2019-10-05 05:14] LABS: HEMATOCRIT. 29.3 % (36.0-48.0); HEMOGLOBIN. 9.2 g/dL (12.0-16.0); MEAN CORPUSCULAR HEMOGLOBIN 28.9 pg (28.0-32.0); MEAN CORPUSCULAR VOLUME 91.8 fL (81.0-99.0); MEAN PLATELET VOLUME 8.5 fl (7.4-10.4); PLATELET 187 x1000/uL (130-400); RED CELL DISTRIBUTION WIDTH 18.9 % (11.6-14.6)
[2019-10-05] MEDS ORDERED: DEXTROSE 50% WATER 50ML SYRINGE IV PRN (05:15)
[2019-10-05] MEDS: PIPERACILLIN/TAZOBACTAM 2.25 G in DEXTROSE 5% WATER 50 ML IV SCH ×3 (05:25→22:00)
[2019-10-05] MEDS: INSULIN LISPRO 100 UNITS/ML SUBCUT SCH ×3 (06:00→17:50)
[2019-10-05] MEDS ORDERED: METHYLPREDNISOLONE SOD SUCC 125 MG/2 ML VIAL IV SCH (06:00)
[2019-10-05] MEDS: BLOOD SUGAR DIAGNOSTIC STRIP TEST SCH ×3 (06:34→17:49)
[2019-10-05 07:49] LABS: PLATELET ESTIMATE NORMAL
[2019-10-05] MEDS: ENOXAPARIN 30MG/0.3ML SYR SUBCUT SCH (09:00)
[2019-10-05 09:47] LABS: BG BASE EXCESS 2.8 mmol/L (-2.0-2.0); BG BILEVEL POS AIRWAY PRESSURE 20/5; BG CARBOXYHEMOGLOBIN 0.6 % (0.5-1.5); BG DEOXYHEMOGLOBIN 11.6 % (0.0-5.0); BG FRACTION INSPIRED OXYGEN 100; BG HCO3 ACT 30.9 mmol/L (22.0-26.0); BG METHEMOGLOBIN 0.3 % (0.0-1.5); BG OXYGEN SATURATION 88.3 % (92.0-98.5); BG OXYHEMOGLOBIN 87.5 % (94.0-97.0); BG PCO2 65.8 mmHg (35.0-45.0); BG PH 7.289 (7.350-7.450); BG PO2 54.2 mmHg (75.0-100.0); BG SAMPLE SITE RIGHT RADIAL; BG TOTAL HEMOGLOBIN 11.7 g/dL (12.0-18.0); BG VENT MODE MASK - BIPAP
[2019-10-05 09:47] LABS: BG BASE EXCESS 4.4 mmol/L (-2.0-2.0); BG CARBOXYHEMOGLOBIN 0.3 % (0.5-1.5); BG DEOXYHEMOGLOBIN 1.7 % (0.0-5.0); BG FRACTION INSPIRED OXYGEN 80; BG HCO3 ACT 30.3 mmol/L (22.0-26.0); BG OXYGEN SATURATION 98.3 % (92.0-98.5); BG PCO2 52.2 mmHg (35.0-45.0); BG PH 7.382 (7.350-7.450); BG PO2 117.4 mmHg (75.0-100.0); BG SAMPLE SITE RIGHT RADIAL; BG TIDAL VOLUME(mL) 500 mL; BG TOTAL HEMOGLOBIN 10.4 g/dL (12.0-18.0); BG VENT MODE VENT - A/C; BG VENT RATE 14 set
[2019-10-05 09:47] LABS: BG BASE EXCESS 4.4 mmol/L (-2.0-2.0); BG DEOXYHEMOGLOBIN 0.8 % (0.0-5.0); BG FRACTION INSPIRED OXYGEN 100; BG HCO3 ACT 29.8 mmol/L (22.0-26.0); BG OXYGEN SATURATION 99.2 % (92.0-98.5); BG OXYHEMOGLOBIN 99.2 % (94.0-97.0); BG PCO2 48.8 mmHg (35.0-45.0); BG PH 7.403 (7.350-7.450); BG PO2 198.7 mmHg (75.0-100.0); BG SAMPLE SITE RIGHT RADIAL; BG TIDAL VOLUME(mL) 500 mL; BG TOTAL HEMOGLOBIN 9.3 g/dL (12.0-18.0); BG VENT MODE VENT - A/C; BG VENT RATE 14 set
[2019-10-05 09:50] LABS: BG BASE EXCESS 1.8 mmol/L (-2.0-2.0); BG BILEVEL POS AIRWAY PRESSURE 16/16; BG CARBOXYHEMOGLOBIN 0.6 % (0.5-1.5); BG DEOXYHEMOGLOBIN 7.3 % (0.0-5.0); BG FRACTION INSPIRED OXYGEN 100; BG HCO3 ACT 30.4 mmol/L (22.0-26.0); BG METHEMOGLOBIN 0.3 % (0.0-1.5); BG OXYGEN SATURATION 92.6 % (92.0-98.5); BG OXYHEMOGLOBIN 91.8 % (94.0-97.0); BG PCO2 69.1 mmHg (35.0-45.0); BG PH 7.261 (7.350-7.450); BG PO2 65.7 mmHg (75.0-100.0); BG SAMPLE SITE RIGHT RADIAL; BG VENT MODE MASK - BIPAP
[2019-10-05 09:50] LABS: BG BASE EXCESS 2.3 mmol/L (-2.0-2.0); BG BILEVEL POS AIRWAY PRESSURE 16/10; BG CARBOXYHEMOGLOBIN 1.6 % (0.5-1.5); BG DEOXYHEMOGLOBIN 10.7 % (0.0-5.0); BG FRACTION INSPIRED OXYGEN 100; BG HCO3 ACT 30.2 mmol/L (22.0-26.0); BG METHEMOGLOBIN 0.3 % (0.0-1.5); BG OXYGEN SATURATION 89.1 % (92.0-98.5); BG OXYHEMOGLOBIN 87.4 % (94.0-97.0); BG PCO2 64.3 mmHg (35.0-45.0); BG PO2 54.6 mmHg (75.0-100.0); BG SAMPLE SITE RIGHT RADIAL; BG TOTAL HEMOGLOBIN 11.8 g/dL (12.0-18.0); BG VENT MODE MASK - BIPAP; BG VENT RATE 16 set
[2019-10-05] MEDS: PANTOPRAZOLE SODIUM 40 MG/VIAL IV SCH (09:57)
[2019-10-05] MEDS: DEXTROSE 5% WATER 1,000 ML IV SCH (10:00)
[2019-10-05] MEDS ORDERED: HEPARIN SODIUM 1,000 UNIT/1ML VIAL IV NR (10:15)
[2019-10-05 11:03] LABS: INR 1.1; PARTIAL THROMBOPLASTIN TIME 32.4 sec (23.4-31.0); PROTHROMBIN TIME 11.2 sec (9.6-11.0)
[2019-10-05] MEDS: METHYLPREDNISOLONE SOD SUCC 40 MG/ML VIAL IV SCH ×2 (14:10→21:02)
[2019-10-05] MEDS: ACETYLCYSTEINE 100MG/ML 10% VIAL 4ML INH SCH (16:03)
[2019-10-05] MEDS ORDERED: VANCOMYCIN 750 MG PREMIX 150 ML IV SCH (17:00)
[2019-10-05] MEDS: PROPOFOL 10MG/ML 100ML 100 ML IV PRN (17:58)
[2019-10-05] MEDS ORDERED: PIPERACILLIN/TAZ 2.25G PREMIX 50 ML IV SCH (20:00)
[2019-10-05] MEDS ORDERED: VANCOMYCIN 1,750 MG in DEXT 5% WATER 250 ML IV NR (21:00)
[2019-10-06] VITALS (74 sets, daily range): BP systolic 91–176; BP diastolic 48–117
[2019-10-06] MEDS: IPRATROPIUM/ALBUTEROL 0.5-3(2.5)MG/3ML NEB HHN SCH ×6 (00:28→20:11)
[2019-10-06] MEDS: ACETYLCYSTEINE 100MG/ML 10% VIAL 4ML INH SCH ×3 (00:28→20:11)
[2019-10-06] MEDS: INSULIN LISPRO 100 UNITS/ML SUBCUT SCH ×4 (01:28→18:23)
[2019-10-06] MEDS: PROPOFOL 10MG/ML 100ML 100 ML IV PRN ×2 (01:44→04:59)
[2019-10-06 06:13] LABS: HEMATOCRIT. 30.8 % (36.0-48.0); HEMOGLOBIN. 9.8 g/dL (12.0-16.0); MEAN CORPUSCULAR HEMOGLOBIN 28.5 pg (28.0-32.0); MEAN CORPUSCULAR VOLUME 89.3 fL (81.0-99.0); PLATELET 217 x1000/uL (130-400); RED BLOOD CELL COUNT 3.44 mill/uL (4.2-5.4); RED CELL DISTRIBUTION WIDTH 18.9 % (11.6-14.6)
[2019-10-06] MEDS: METHYLPREDNISOLONE SOD SUCC 40 MG/ML VIAL IV SCH (06:13)
[2019-10-06] MEDS: PIPERACILLIN/TAZOBACTAM 2.25 G in DEXTROSE 5% WATER 50 ML IV SCH ×3 (06:13→18:21)
[2019-10-06] MEDS: BLOOD SUGAR DIAGNOSTIC STRIP TEST SCH ×4 (06:23→18:10)
[2019-10-06 08:03] LABS: BG BASE EXCESS 0.9 mmol/L (-2.0-2.0); BG CARBOXYHEMOGLOBIN 0.3 % (0.5-1.5); BG DEOXYHEMOGLOBIN 1.6 % (0.0-5.0); BG HCO3 ACT 25.3 mmol/L (22.0-26.0); BG METHEMOGLOBIN 0.3 % (0.0-1.5); BG OXYGEN SATURATION 98.4 % (92.0-98.5); BG OXYHEMOGLOBIN 97.8 % (94.0-97.0); BG PCO2 39.2 mmHg (35.0-45.0); BG PH 7.427 (7.350-7.450); BG PO2 129.2 mmHg (75.0-100.0); BG SAMPLE SITE RIGHT RADIAL; BG TIDAL VOLUME(mL) 600 mL; BG TOTAL HEMOGLOBIN 10.5 g/dL (12.0-18.0); BG VENT MODE VENT - A/C; BG VENT RATE 14 set
[2019-10-06 08:37] LABS: PLATELET ESTIMATE NORMAL
[2019-10-06] MEDS: PANTOPRAZOLE SODIUM 40 MG/VIAL IV SCH (08:51)
[2019-10-06] MEDS ORDERED: HEPARIN SODIUM 1,000 UNIT/1ML VIAL IV NR (10:00)
[2019-10-06 12:56] LABS: BG BASE EXCESS -1.3 mmol/L (-2.0-2.0); BG CARBOXYHEMOGLOBIN 0.3 % (0.5-1.5); BG DEOXYHEMOGLOBIN 3.1 % (0.0-5.0); BG FRACTION INSPIRED OXYGEN 40; BG HCO3 ACT 23.4 mmol/L (22.0-26.0); BG OXYGEN SATURATION 96.9 % (92.0-98.5); BG OXYHEMOGLOBIN 96.6 % (94.0-97.0); BG PCO2 39.4 mmHg (35.0-45.0); BG PH 7.392 (7.350-7.450); BG PO2 98.3 mmHg (75.0-100.0); BG PRESSURE SUPPORT 8; BG SAMPLE SITE RIGHT RADIAL; BG TOTAL HEMOGLOBIN 10.9 g/dL (12.0-18.0); BG VENT MODE VENT - CPAP
[2019-10-06] MEDS: DEXTROSE 5% WATER 1,000 ML IV SCH (13:52)
[2019-10-06] MEDS: ENOXAPARIN 30MG/0.3ML SYR SUBCUT SCH (13:52)
[2019-10-07] VITALS (39 sets, daily range): BP systolic 95–155; BP diastolic 41–104
[2019-10-07] MEDS: IPRATROPIUM/ALBUTEROL 0.5-3(2.5)MG/3ML NEB HHN SCH ×6 (00:45→20:16)
[2019-10-07] MEDS: PIPERACILLIN/TAZOBACTAM 2.25 G in DEXTROSE 5% WATER 50 ML IV SCH ×5 (01:47→23:14)
[2019-10-07] MEDS: INSULIN LISPRO 100 UNITS/ML SUBCUT SCH ×5 (01:56→23:14)
[2019-10-07] MEDS: BLOOD SUGAR DIAGNOSTIC STRIP TEST SCH ×5 (05:41→23:14)
[2019-10-07 07:48] LABS: HEMATOCRIT. 29.3 % (36.0-48.0); HEMOGLOBIN. 9.2 g/dL (12.0-16.0); MEAN CORPUSCULAR HEMOGLOBIN 28.3 pg (28.0-32.0); MEAN PLATELET VOLUME 8.6 fl (7.4-10.4); PLATELET 232 x1000/uL (130-400); RED BLOOD CELL COUNT 3.26 mill/uL (4.2-5.4); RED CELL DISTRIBUTION WIDTH 19.2 % (11.6-14.6)
[2019-10-07] MEDS: ACETYLCYSTEINE 100MG/ML 10% VIAL 4ML INH SCH ×2 (08:19→20:16)
[2019-10-07] MEDS: PANTOPRAZOLE SODIUM 40 MG/VIAL IV SCH (08:23)
[2019-10-07] MEDS: ENOXAPARIN 30MG/0.3ML SYR SUBCUT SCH (08:23)
[2019-10-07] MEDS: PREDNISONE 20MG TABLET PO SCH (08:23)
[2019-10-07 13:51] LABS: PLATELET ESTIMATE NORMAL
[2019-10-08] VITALS (34 sets, daily range): BP systolic 93–159; BP diastolic 39–100
[2019-10-08] MEDS: IPRATROPIUM/ALBUTEROL 0.5-3(2.5)MG/3ML NEB HHN SCH ×6 (00:27→20:18)
[2019-10-08] MEDS: BLOOD SUGAR DIAGNOSTIC STRIP TEST SCH ×3 (05:35→17:41)
[2019-10-08] MEDS: INSULIN LISPRO 100 UNITS/ML SUBCUT SCH ×3 (05:35→17:45)
[2019-10-08] MEDS: PIPERACILLIN/TAZOBACTAM 2.25 G in DEXTROSE 5% WATER 50 ML IV SCH ×3 (05:36→17:44)
[2019-10-08 05:39] LABS: BASOPHILS % 0.1 % (0.0-2.0); EOSINOPHILS % 0.1 % (0.0-5.0); HEMATOCRIT. 32.9 % (36.0-48.0); HEMOGLOBIN. 10.5 g/dL (12.0-16.0); LYMPHOCYTES % 10.3 % (20.0-50.0); MEAN CORPUSCULAR HEMOGLOBIN 28.9 pg (28.0-32.0); MEAN CORPUSCULAR VOLUME 90.9 fL (81.0-99.0); MEAN PLATELET VOLUME 8.7 fl (7.4-10.4); MONOCYTES % 7.9 % (2.0-8.0); NEUTROPHILS % 81.6 % (40.0-76.0); PLATELET 240 x1000/uL (130-400); RED BLOOD CELL COUNT 3.62 mill/uL (4.2-5.4); RED CELL DISTRIBUTION WIDTH 18.8 % (11.6-14.6)
[2019-10-08] MEDS: ACETYLCYSTEINE 100MG/ML 10% VIAL 4ML INH SCH (08:15)
[2019-10-08] MEDS ORDERED: ENOXAPARIN 40MG/0.4ML SYR SUBCUT SCH (09:00)
[2019-10-08] MEDS: PANTOPRAZOLE SODIUM 40 MG/VIAL IV SCH (09:09)
[2019-10-08] MEDS: GUAIFENESIN-DM 200MG-20MG/10ML UDC PO PRN (09:10)
[2019-10-08] MEDS: PREDNISONE 20MG TABLET PO SCH (09:10)
[2019-10-08] MEDS ORDERED: VANCOMYCIN 750 MG PREMIX 150 ML IV NR (12:00)
[2019-10-09] VITALS (44 sets, daily range): BP systolic 98–194; BP diastolic 45–141
[2019-10-09] MEDS: BLOOD SUGAR DIAGNOSTIC STRIP TEST SCH ×4 (00:07→18:40)
[2019-10-09] MEDS: PIPERACILLIN/TAZOBACTAM 2.25 G in DEXTROSE 5% WATER 50 ML IV SCH ×4 (00:13→18:49)
[2019-10-09] MEDS: IPRATROPIUM/ALBUTEROL 0.5-3(2.5)MG/3ML NEB HHN SCH ×6 (00:19→20:58)
[2019-10-09] MEDS: GUAIFENESIN-DM 200MG-20MG/10ML UDC PO PRN (03:06)
[2019-10-09 05:57] LABS: BASOPHILS % 0.2 % (0.0-2.0); EOSINOPHILS % 0.1 % (0.0-5.0); HEMOGLOBIN. 9.9 g/dL (12.0-16.0); LYMPHOCYTES % 13.2 % (20.0-50.0); MEAN CORPUSCULAR HEMOGLOBIN 28.7 pg (28.0-32.0); MEAN CORPUSCULAR VOLUME 89.8 fL (81.0-99.0); MEAN PLATELET VOLUME 8.8 fl (7.4-10.4); NEUTROPHILS % 78.5 % (40.0-76.0); PLATELET 227 x1000/uL (130-400); RED BLOOD CELL COUNT 3.45 mill/uL (4.2-5.4); RED CELL DISTRIBUTION WIDTH 18.3 % (11.6-14.6)
[2019-10-09] MEDS: INSULIN LISPRO 100 UNITS/ML SUBCUT SCH ×4 (06:00→18:50)
[2019-10-09] MEDS: ACETYLCYSTEINE 100MG/ML 10% VIAL 4ML INH SCH ×2 (08:52→21:00)
[2019-10-09] MEDS: PREDNISONE 20MG TABLET PO SCH (08:57)
[2019-10-09] MEDS: PANTOPRAZOLE SODIUM 40 MG/VIAL IV SCH (08:57)
[2019-10-09] MEDS ORDERED: ENOXAPARIN 30MG/0.3ML SYR SUBCUT SCH (09:00)
[2019-10-09] MEDS ORDERED: VANCOMYCIN 750 MG PREMIX 150 ML IV NR (15:00)
[2019-10-09 18:04] LABS: BG CARBOXYHEMOGLOBIN 0.6 % (0.5-1.5); BG DEOXYHEMOGLOBIN 24.1 % (0.0-5.0); BG FRACTION INSPIRED OXYGEN 21; BG HCO3 ACT 26.8 mmol/L (22.0-26.0); BG METHEMOGLOBIN 0.3 % (0.0-1.5); BG OXYGEN SATURATION 75.7 % (92.0-98.5); BG PCO2 47.5 mmHg (35.0-45.0); BG PH 7.369 (7.350-7.450); BG PO2 41.1 mmHg (75.0-100.0); BG SAMPLE SITE RIGHT RADIAL; BG TOTAL HEMOGLOBIN 12.1 g/dL (12.0-18.0); BG VENT MODE ROOM AIR
== END 2019-10-09 23:58 | disposition home health service (06) | DRG 720 ==
LOC: ER 16:00 → MICUNO 17:53 → ENRESERV 10-05 02:35
PROVIDERS: ADMIT Internal Medicine; ATTEND Internal Medicine
PROC: 5A09357 Assistance with Respiratory Ventilation, Less than 24 Consecutive Hours, Continuous Positive Airway Pressure (ICD-10-PCS; 2019-10-04)
PROC: 5A1945Z Respiratory Ventilation, 24-96 Consecutive Hours (ICD-10-PCS; principal; 2019-10-05)
PROC: 0BH17EZ Insertion of Endotracheal Airway into Trachea, Via Natural or Artificial Opening (ICD-10-PCS; 2019-10-05)
PROC: 5A1D70Z Performance of Urinary Filtration, Intermittent, Less than 6 Hours Per Day (ICD-10-PCS; 2019-10-05)
PROC: 0WJ8XZZ Inspection of Chest Wall, External Approach (ICD-10-PCS; 2019-10-05)
PROC: 5A1D70Z Performance of Urinary Filtration, Intermittent, Less than 6 Hours Per Day (ICD-10-PCS; 2019-10-06)
PROC: 5A1D70Z Performance of Urinary Filtration, Intermittent, Less than 6 Hours Per Day (ICD-10-PCS; 2019-10-07)
PROC: 5A1D70Z Performance of Urinary Filtration, Intermittent, Less than 6 Hours Per Day (ICD-10-PCS; 2019-10-09)
DX: A41.9 Sepsis, unspecified organism (principal); J96.01 Acute respiratory failure with hypoxia; I13.2 Hypertensive heart and chronic kidney disease with heart failure and with stage 5 chronic kidney disease, or end stage renal disease; J18.9 Pneumonia, unspecified organism; I42.9 Cardiomyopathy, unspecified; E11.22 Type 2 diabetes mellitus with diabetic chronic kidney disease; J44.0 Chronic obstructive pulmonary disease with (acute) lower respiratory infection; N18.6 End stage renal disease; E83.42 Hypomagnesemia; I50.43 Acute on chronic combined systolic (congestive) and diastolic (congestive) heart failure; D63.8 Anemia in other chronic diseases classified elsewhere; E78.5 Hyperlipidemia, unspecified; M19.90 Unspecified osteoarthritis, unspecified site; S51.811A Laceration without foreign body of right forearm, initial encounter; X58.XXXA Exposure to other specified factors, initial encounter; E78.00 Pure hypercholesterolemia, unspecified; Z99.2 Dependence on renal dialysis; Z99.81 Dependence on supplemental oxygen; Z79.2 Long term (current) use of antibiotics; Z79.84 Long term (current) use of oral hypoglycemic drugs; Z79.4 Long term (current) use of insulin; Z79.899 Other long term (current) drug therapy; Y93.89 Activity, other specified; Y92.89 Other specified places as the place of occurrence of the external cause; Y99.8 Other external cause status
CPT/HCPCS: 36415; 36600; 71045; 76604; 80048; 80053; 80061; 80202; 82375; 82805; 82962; 83735; 83880; 84100; 84134; 84145; 84443; 84478; 84484; 85025; 87070; 87804; 93005; 93306; 93970; 96365; 97166; 99285; A6261; C9113; J0456; J1644; J1650; J1815; J2060; J2543; J2704; J2920; J2930; J3370; J7040; J7042; J7060; J7070; J7512; J7608; J7611; J7620; A4315